=== PATIENT | female | born 1960 | race African-American/Black ===

== ENCOUNTER 2019-10-27 10:01 | Day surgery (SDC) | payer OTHER ==
[2019-10-27 10:38] VITALS: BMI 37.9
[2019-10-27 13:35] VITALS: TEMP 98.2
[2019-10-27 13:42] VITALS: BP 154/83; PULSE 72
--- NOTE | 2019-10-30 18:20 | PATH ---
Surgical Pathology Report Patient Name: SHUBHAM LEES [facility]. Rec. #: [id number] /Age/Gender: 1960 (Age: 59) / F Account: [id number] Location: [facility] Taken: 10/27/2019 Received: 10/27/2019 Reported: 10/30/2019 Physicians: Panda Ibarra M.D. Specimen(s) Received A: SECOND PORTION DUODENUM B: ANTRUM Clinical History GERD Postoperative diagnosis: Gastritis, duodenitis Final Diagnosis A. SECOND PORTION OF DUODENUM, BIOPSY: DUODENAL MUCOSA WITH NO SIGNIFICANT PATHOLOGIC CHANGE. NO HISTOLOGIC EVIDENCE OF INTRAEPITHELIAL LYMPHOCYTOSIS. B. ANTRUM, BIOPSY: GASTRIC MUCOSA WITH ACTIVE CHRONIC GASTRITIS. IMMUNOSTAIN FOR H. PYLORI IS POSITIVE. NEGATIVE FOR INTESTINAL METAPLASIA. Comment: Immunostain for H. pylori performed at [place], [place] ([id number]) and interpreted at [facility] Positive and negative controls (internal if applicable) show appropriate results. Electronically Signed Stewart Alvarez M.D. Gross Description A. Received in formalin, labeled "biopsy second portion of duodenum" is a beltran, irregular portion of soft tissue measuring 0.3 cm. in greatest dimension. The specimen is submitted in toto in one cassette. B. Received in formalin, labeled "biopsy gastric antrum" are 2 beltran, irregular portions of soft tissue measuring 0.4 and 0.5 cm. in greatest dimension. The specimens are submitted in toto in one cassette. 10/28/2019 saudi10/28/2019
== END 2019-10-27 12:45 | disposition home or self-care (01) ==
LOC: FASU-ENDO 10:01
PROVIDERS: ATTEND Internal Medicine Gastroenterology
PROC: 0DB68ZX Excision of Stomach, Via Natural or Artificial Opening Endoscopic, Diagnostic (ICD-10-PCS; 2019-10-27)
PROC: 0DB98ZX Excision of Duodenum, Via Natural or Artificial Opening Endoscopic, Diagnostic (ICD-10-PCS; principal; 2019-10-27 10:57)
DX: K29.50 Unspecified chronic gastritis without bleeding (principal); B96.81 Helicobacter pylori [H. pylori] as the cause of diseases classified elsewhere